=== PATIENT | male | born 1990 | race Caucasian/White ===

== ENCOUNTER 2023-06-12 01:21 | Emergency (ER) | payer SELFPAY ==
[2023-06-12 01:30] VITALS: BP 137/104; PULSE 76; RESP 18; TEMP 37.6; O2SAT 99
--- NOTE | 2023-06-12 01:37 | ED.GENADUL_ITS ---
Discharge Plan Disposition Patient Disposition: Home Condition: Good Discharge Details Clinical Impression: Pain, dental Primary Care Provider: Arlene Beck ED Provider: Dmitry Adorno Home Meds and New Rx's Prescriptions: New amoxicillin-pot clavulanate 875-125 mg tablet 1 tab PO BID Qty: 20 0RF Discharge Instructions Instructions: Toothache (ED) Additional Instructions: The block we administered should help improve your pain. Please take 600-800 mg of ibuprofen every 6 hours and 1000 mg of Tylenol every 6 hours to help with the inflammation and pain. These are the maximum doses. Please take the antibiotic as directed to help with the infection in your tooth. Please follow-up with your dentist as soon as possible for tooth removal. If you notice any worsening of your symptoms, or any new symptoms such as difficulty swallowing, difficulty breathing, vomiting, diarrhea, fever, chills, shortness of breath, chest pain, numbness, weakness, or fainting , please return immediately to the emergency department for reevaluation. Please follow up with your primary care provider as soon as possible for reassessment and reevaluation. As always, it was a pleasure participating in your medical care today. Referrals: Arlene Beck, NICOLE [Primary Care Provider] - Medical Decision Making 32-year-old male presents today with left upper dental pain. Patient states he has been struggling this for the last few months. Patient states he has been on 2 rounds of antibiotics, the first penicillin, the second amoxicillin. He recently just finished about a week ago. Each time he takes the antibiotics his pain goes down but then comes back a few days later. He is scheduled to have a dental extraction in the beginning of June. Pain has returned and has been present for the last few days, he has been taking Tylenol and Motrin with minimal improvement. Pain is most improved with cold water to the area. He denies any fever or chills or difficulty drinking or eating. No other complaints at this time. Exam demonstrates a small dental carry in the left posterior upper molar. No periapical abscess. Suspect mild pulpitis. Discussed risk and benefits of block, patient consented for block. Dental block performed with notable improvement of pain. Will recommend continued NSAIDs at home. Will start the patient on Augmentin, give a dose here, and a prescription for home use. Recommend close follow-up with dentist. Discussed red flags which to return. I have extensively reviewed the treatment plan and discharge instructions with the patient. I have addressed all patient concerns at this time. The patient was made aware of what symptoms to monitor for that would warrant a return to the emergency department. Discussed the plan with the patient, they demonstrate verbal understanding and agreement with our assessment and plan at this time. The documentation in this chart was dictated using [employer] dictation software. Please excuse any dictation errors. HPI General Date/Time Provider Initiated Documentation: 06/12/23 01:22 . HPI Narrative: 32-year-old male presents today with left upper dental pain. Patient states he has been struggling this for the last few months. Patient states he has been on 2 rounds of antibiotics, the first penicillin, the second amoxicillin. He recently just finished about a week ago. Each time he takes the antibiotics his pain goes down but then comes back a few days later. He is scheduled to have a dental extraction in the beginning of June. Pain has returned and has been present for the last few days, he has been taking Tylenol and Motrin with minimal improvement. Pain is most improved with cold water to the area. He denies any fever or chills or difficulty drinking or eating. No other complaints at this time. Related Data Home Medications Medication Instructions Recorded Confirmed amoxicillin 875 mg-potassium 1 tab PO BID #20 tabs 06/12/23 clavulanate 125 mg tablet Previous Rx's Medication Instructions Recorded amoxicillin 875 mg-potassium 1 tab PO BID #20 tabs 06/12/23 clavulanate 125 mg tablet Allergies Allergy/AdvReac Type Severity Reaction Status Date / Time No Known Allergies Allergy Verified 06/12/23 01:28 General Stated Complaint: DentalOral JOHN: 4 Review of Systems All systems reviewed & are unremarkable except as noted in HPI and below PFSH All Active Problems Pain, dental (Acute) Gastric pain (Acute) Loss of appetite (Acute) Depression (Chronic) Anxiety (Chronic) Medical History History of non-suicidal self-harm History of suicidal ideation Family History Mother Hyperlipidemia Depression Diabetes Pre-DM Father Depression Heart disease Hypertension Stroke Cancer Sister Depression anxiety Paternal Grandmother Breast cancer Maternal Grandfather Cancer Social History Smoking/Tobacco Use Status: Current every day Tobacco Type: cigars Tobacco: How many years used: 10 Quit status: not considering quitting Second Hand Exposure: Yes Smoking risk assessment performed?: Yes Alcohol Intake: never Drug use: Daily Substance use type: marijuana Caregiver/Support person: No Household members: other Details: Mom/StepDad Housing: house Communication Needs: None Pets and animals: Yes Do you think of yourself as: straight/heterosexual Current gender identity: male What is your relationship status?: never How often do you talk on the phone with friends or family?: once per week How often do you get together with friends or relatives?: once per week How often do you attend sikh or jewish services?: decline to answer Do you belong to any clubs or organized social groups?: no Panel score (0-1 are the most socially isolated patients): 0 What type of physical activity do you participate in: regular exercise Lisa/Muslim: No preference Seatbelt use: always Helmet use: Yes Drive intox or ride w/intox airport shuttle driver: No Do you feel safe at home: Yes Do you feel safe in your relationship?: Yes Exam Narrative Exam Narrative: 1.Const: Well-nourished, Well-developed, appearing stated age 2.Eyes: PERRL, no conjunctival injection, and symmetrical lids. 3.ENT: Atraumatic external nose and ears. Moist MM. Neck: Symmetric, trachea midline, No thyromegaly. Mild dental caries in the upper teeth, predominantly in the left upper posterior molar. No periapical abscess. No evidence of Ludewig's angina. No signs of oropharyngeal compromise. 4.CVS: +S1/S2, No murmurs or gallops. Peripheral pulses 2+ and equal in all extremities. Brisk capillary refill in all extremities. 5.RESP: Unlabored respiratory effort. Clear to auscultation bilaterally. No wheezes rales or rhonchi 6.GI: Soft, Nontender/Nondistended, No hepatosplenomegaly. No guarding or rebound. 7.MSK: Normocephalic/Atraumatic, Extremities w/o deformity or ttp No cyanosis or clubbing, Normal movement of all extremities 8.Skin: Warm, Dry. No rashes or lesions. 9.Neuro: director of blood II-XII grossly intact. Sensation grossly intact, no focal neurologic deficits. 10.Psych: (AAO) x3. Appropriate mood and affect Course Vital Signs Vital signs: Vital Signs Temperature 37.6 C H 06/12/23 01:30 Pulse 76 06/12/23 01:30 Respiratory Rate 18 06/12/23 01:30 Blood Pressure 137/104 H 06/12/23 01:30 Pulse Oximetry 99 06/12/23 01:30 Temperature 37.6 C H 06/12/23 01:30 Temperature Source Temporal Artery Scan 06/12/23 01:30 Pulse 76 06/12/23 01:30 Respiratory Rate 18 06/12/23 01:30 Respiratory Effort Normal 06/12/23 01:33 Blood Pressure 137/104 H 06/12/23 01:30 Blood Pressure Position Sitting 06/12/23 01:30 Pulse Oximetry 99 06/12/23 01:30 Oxygen Delivery Method Room Air 06/12/23 01:30 Oxygen Flow Rate 0 06/12/23 01:30 Pain Level 8 06/12/23 01:35 Comment dental block placed by MD in triage area, pt tolerated well. 06/12/23 01:35 Procedures Nerve Block Nerve Block 1: Time out performed: Yes Local Anesthetic: Bupivicaine 0.25% Amount of anesthesia used (mL): 6 Side: left Intraoral Nerve Block: superior alveolar Procedure Successful: Yes Patient Tolerated Procedure: well and no complications Complications: none
[2023-06-12] MEDS: Amox. 875/Clav. 125, 2 TABS/BTL 1 TAB PO (01:46)
== END 2023-06-12 01:48 | disposition home or self-care (01) ==
LOC: ER 01:44
PROVIDERS: Emergency Provider Student in an Organized Health Care Education/Training Program; PCP Nurse Practitioner Family
DX: K08.89 Other specified disorders of teeth and supporting structures (principal); F17.290 Nicotine dependence, other tobacco product, uncomplicated
CPT/HCPCS: 64400; 99283